=== PATIENT | male | born 1965 | race Caucasian/White ===

== ENCOUNTER 2019-01-02 13:09 | Outpatient (CLI) | payer OTHER ==
--- NOTE | 2019-01-02 15:37 | RAD ---
THREE VIEWS LUMBAR SPINE: HISTORY: Fall 2-3 weeks ago. Pain. COMPARISON: None. FINDINGS: Lateral neutral, lateral flexion, and lateral extension views of the lumbar spine are submitted for i nterpretation. FINDINGS: There appear to be 5 lumbar-type vertebral bodies. In the neutral upright position, there is 2 mm of retrolisthesis of L3 upon L4, upon extension 3.2 mm on of retrolisthesis of L3 upon L4, upon flexion there is 2.3 mm of retrolisthesis of L3 upon L4. In the neutral position, there is 2.2 mm of anterolisthesis of L4 upon L5. Upon extension, anterolis thesis resolves. Upon flexion, there is 3.5 mm anterolisthesis of L4 upon L5. IMPRESSION: Spondylolisthesis as above. POS: [facility]
== END 2019-01-02 13:10 | disposition home or self-care (01) ==
LOC: TBSIIMAG 13:09
PROVIDERS: ATTEND Neurological Surgery
DX: M43.16 Spondylolisthesis, lumbar region (principal); M25.559 Pain in unspecified hip
CPT/HCPCS: 72100; 72148

== ENCOUNTER 2019-01-13 07:51 | Outpatient (CLI) | payer OTHER ==
--- NOTE | 2019-01-13 11:03 | MRI ---
MRI LUMBAR SPINE NONCONTRAST: DATE: 01/13/19 HISTORY: 53-year-old male with low back pain and lumbar radiculopathy. M25.559 pain in unspecified hip. M43.16 spondylolisthesis, lumbar region. COMPARISON: None. FINDINGS: Vertebral body heights are maintained. No major bone marrow signal abnormality. T12-L1: Normal. L1-2: Normal. Conus medullaris terminates at mid L2 level. L2-3: Mild disc desiccation. Minimal disc space narrowing and minimal disc bulge. No central or neur al foraminal stenosis. Hemangioma of bone at left side of superior end plate of L3. L3-4: Mild to moderate disc space narrowing. Disc desiccation. Degenerative retrolisthesis of L3 on L4. Mild diffuse disc bulge. No significant central spinal canal stenosis. Posterior epidural fat pad . Mild thecal sac stenosis. Mild to moderate right neural foraminal stenosis. Almost complete effacem ent of fat signal in the left neural foramen by a combination of left lateral and far lateral broad b ased disc herniation with annular fissure, which significantly compresses, posteriorly displaces, and distorts the exiting left L3 nerve root, plus an approximately 1 x 1 x 1 cm mass located just latera l to the left neural foramen. This mass is T2-hyperintense and T1-hypointense. There is edema in the adjacent soft tissues. Furthermore, there is a central and left paracentral small disc extrusion with inferior migration of the extruded disc material down to the pedicle level of L4. This extrusion does not significantly abdias row the spinal canal and does not impinge on nerve roots. However, the anterior epidural fat pad is l arge at the pedicle level of L4, resulting in severe thecal sac stenosis at the L4 level, with crowdi ng to the cauda equina, and effacement of CSF signal, despite lack of severe bony spinal canal stenos is. L4-5: Moderate right degenerative facet disease and mild left degenerative facet disease. Mild disc space narrowing, disc desiccation, and diffuse disc bulge. Moderate right neural foraminal stenosis a nd mild to moderate left neural foraminal stenosis. Mild to moderate central spinal canal stenosis. P rominent posterior epidural fat pad. Moderate thecal sac stenosis. L5-S1: Normal disc height and disc signal. Severe bilateral degenerative facet disease results in ve ry mild Grade I anterolisthesis of L5 on S1. No central or neural foraminal stenosis. IMPRESSION: 1. Significant impingement on the exiting left L3 nerve root in the left neural foramen by a combina tion of left lateral and far lateral disc herniation, and a 1 cm mass centered slightly lateral to th e neural foramen. This mass could be a discal cyst, a nerve sheath tumor (schwannoma), and less likel y a nerve root sleeve cyst. There is adjacent soft tissue edema. 2. MRI of lumbar spine with contrast is recommended for further evaluation. 3. Severe facet osteoarthrosis bilaterally at L5-S1. 4. Mild to moderate degenerative disc disease at L3-4 and L4-5. SATYA Greco POS: [facility]
--- NOTE | 2019-01-13 11:29 | MRI ---
MRI OF THE LEFT HIP WITHOUT IV CONTRAST: INDICATION: History of fall 4 months ago with left hip pain. TECHNIQUE: Noncontrast MR images were obtained of the left hip. FINDINGS: There is a full-thickness partial-width tear involving the anterior left gluteus medius tendon at the insertion. There is partial thickness extension from this full-thickness component posteriorly into the mid aspect of the gluteus medius tendon at its footprint involving approximately 50% of the tend on thickness. The posterior aspect of the medius is intact. The left gluteus minimus tendon is inta ct. There is mild trochanteric bursitis. There is mild tendinosis of the left iliopsoas tendon. The rectus femoris and hamstring origins appe ar within normal limits. There is mild full-thickness articular cartilage thinning involving the ant erior superior aspect of the acetabular articular cartilage. The acetabular labrum is intact. Bone marrow signal intensity appears within normal limits. No lymphadenopathy is grossly evident. Incide ntal note is made of a cm paralabral cyst seen along the superior margin of the right hip suspicious for underlying labral tear. IMPRESSION: 1. Full-thickness partial-width tear of the anterior aspect of the left gluteus medius tendon at its insertion with partial thickness extension from this tear into the mid aspect of the gluteus medius tendon where the partial-width components of this region is 50% in thickness of the tendon itself. T here is mild left trochanteric bursitis. 2. Mild to moderate chondrosis of the left hip acetabular cartilage. 3. Suspected right hip paralabral tear with associated paralabral cyst. There is a 1 cm paralabral cyst seen along the posterior superior margin of the right hip. POS: [facility]
== END 2019-01-13 07:52 | disposition home or self-care (01) ==
LOC: TBSIIMAG 07:51
PROVIDERS: ATTEND Neurological Surgery
DX: M43.16 Spondylolisthesis, lumbar region (principal); M25.552 Pain in left hip; M47.817 Spondylosis without myelopathy or radiculopathy, lumbosacral region; M51.36 Other intervertebral disc degeneration, lumbar region; M51.26 Other intervertebral disc displacement, lumbar region; S76.012A Strain of muscle, fascia and tendon of left hip, initial encounter; M24.152 Other articular cartilage disorders, left hip; M70.62 Trochanteric bursitis, left hip; M24.851 Other specific joint derangements of right hip, not elsewhere classified
CPT/HCPCS: 72100; 72148

== ENCOUNTER 2019-06-02 05:38 | Day surgery (SDC) | payer OTHER ==
--- NOTE | 2019-06-01 09:16 | HP ---
HISTORY OF PRESENT ILLNESS: Mr. Dominguez is a 53-year-old male, who reports to our office for evaluation of low back and leg pain. States he slipped and fell down the stairs while working in June, sustained a meniscus injury and pain in his tailbone. He felt better, had returned to work, and then recently early November , he called his about he felt excruciating pain in the low back and hip and thigh. Today, the patient is walking with a limp on the left, using his 's walker to get around. The patient states that most of his hip pain is in the hip and it is in low back, left groin, anterior thigh, medial aspect of the knee and states that his second two toes are numb with recent injury. 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 He has taken Tylenol No. 3, naproxen, and muscle relaxers. REVIEW OF SYSTEMS: A 10-point review of systems has been completed and is negative other than stated in the above HPI. PAST MEDICAL HISTORY: Hypertension, left meniscal tear. PAST SURGICAL HISTORY: ACDF, C4 through C7. FAMILY HISTORY: Father is , diagnosed with heart disease and cancer. Mother is , diagnosed with heart disease. Children are alive. SOCIAL HISTORY: The patient is a smoker, reports smoking approximately half pack a day for 30 years and also uses snuff. Reports weekly ethanol use and works as a He is with children. MEDICATIONS: Lisinopril/hydrochlorothiazide, Tylenol No. 3. ALLERGIES: NO KNOWN DRUG ALLERGIES. PHYSICAL EXAMINATION: CONSTITUTION: Well-appearing, well-nourished, alert. NEUROLOGIC: Mental Status: Oriented to time, place, and person. Normal attention span and concentration. Speech, spontaneous and fluent. Comprehension intact. Content appropriate. Normal fund of knowledge. Cranial nerves grossly intact. Motor exam, 5/5 bilateral strength in IP, KE, KF, DF, PF, EHL. Negative single leg raise. Bilateral hips and groin pain with hip flexion, worse with internal rotation. Tender to palpate midline spine and left SI joint. Gait and station , put the cane to the left hand, he can walk without it. Motor, mild hip flexor weakness, and left greater than right quad seems strong. Sensory exam, an L3 loss of sensation on the left. Reflex exam knee jerks symmetric. IMAGING STUDIES: MRI far-lateral, herniated nucleus pulposus L3-L4 on L3 nerve root. Lateral recess stenosis at L4-L5 as well. X-rays, no instability with flexion-extension. ASSESSMENT AND PLAN: Lumbar radiculopathy. The patient has been offered surgery. He states that he is interested and has been consented. He states that he understands the risks and is willing to proceed. Job ID: [id number] [facility]
[2019-06-02] MEDS ORDERED: Bupivacaine HCl 0.5%/Epinephrine 1:200,000/PF 30 ml Vial ONE (06:18)
[2019-06-02] MEDS ORDERED: Sodium Chloride 0.9% 20 ML ONE (06:18)
[2019-06-02] MEDS ORDERED: Thrombin 5000 UNITS/5 ML VIAL ONE (06:18)
[2019-06-02] MEDS ORDERED: Fentanyl 100 MCG/2 ML VIAL ONE ×2 (06:39→11:46)
[2019-06-02 06:42] LABS: #Eosinphils 0.1 thou/uL (0.0-0.7); #Lymphocytes 2.1 thou/uL (1.20-3.40); #Monocytes 0.6 thou/uL (0.11-0.59); %Basophils 0.4 % (0.0-1.0); %Eosinophils 1.2 % (0.0-10.0); %Lymphocytes 27.1 % (21.0-51.0); %Monocytes 7.5 % (0.0-10.0); %Neutrophils 63.9 % (42.0-75.0); Hemoglobin 14.5 g/dL (14.0-18.0); Mean Corpuscular HGB CONC 33.4 g/dL (32.0-36.0); Mean Corpuscular Hemoglobin 30.6 pg (27.0-31.0); Mean Corpuscular Volume 91.4 fL (78.0-98.0); Mean Platelet Volume 7.2 fL (7.4-10.4); Platelet Count 288 thou/uL (130-400); RBC Distribution Width 12.4 % (11.5-14.5); Red Blood Cell (RBC) Count 4.73 mill/uL (4.70-6.10); White Blood Cell (WBC) Count 7.7 thou/uL (4.8-10.8)
[2019-06-02 06:49] LABS: INR-International Normal Ratio 0.9; PTT 27.6 SEC (22.9-36.1); Prothrombin Time 12.6 SEC (12.0-14.7)
[2019-06-02] MEDS ORDERED: Meperidine HCl/PF 25 MG/ML VIAL ONE (11:27)
--- NOTE | 2019-06-02 12:01 | OP ---
DATE OF PROCEDURE: 06/02/2019 GAMING CAGE CASHIER: Delma Churchill PA-C. PREOPERATIVE INDICATION: Treat pain and prevent neurological deterioration. PREOPERATIVE DIAGNOSES: Left far-lateral intervertebral disk herniation at L3-L4 with L3 radiculopathy, bilateral L4-L5 foraminal stenosis with L4 radiculopathies. POSTOPERATIVE DIAGNOSES: Left far-lateral intervertebral disk herniation at L3-L4 with L3 radiculopathy, bilateral L4-L5 foraminal stenosis with L4 radiculopathies. PROCEDURES PERFORMED: Decompressive laminectomy and medial facetectomy with foraminotomy at L4-L5 bilateral, left-sided L3-L4 far-lateral microdiskectomy, operating microscope. PREOPERATIVE MEDICATION: Ancef 2 g IV. DRAIN NUMBER: 0. DRAIN TYPE: None. DESCRIPTION OF PROCEDURE: The patient was brought to the operating room. General endotracheal anesthesia was induced. The patient was positioned prone on gel-filled chest rolls and a lateral fluoro radiograph was used to plan our incision. The lumbar skin was sterilely prepped and draped. We opened the midline incision with a 10 blade knife and controlled bleeding with bipolar and monopolar cautery. We used monopolar cautery to dissect through the subcutaneous tissues to the thoracodorsal fascia. We incised the fascia in the midline and reflected the paraspinal muscles off the spinous process and lamina of L3, L4, and L5. A self-retaining retractor was placed and a lateral fluoro radiograph confirmed the levels upon which we were operating. We began with the L3, L4, and L5 laminectomy. We removed the spinous process of L4 and the superior portion of L5. Using a Kerrison rongeur, we fashioned a laminectomy that extended from the inferior portion of the pedicles at L4 to the inferior portion the pedicles at L5. We widened our laminectomy defect with Kerrison rongeurs until we were at the medial edge of each of the pedicles. We performed medial facetectomies and foraminotomies to ensure a Bolaños ball probe could pass through the lateral recess and out the foramen without impingement. We decompressed both L4 nerve roots as well as both L5 nerve roots. We irrigated with bacitracin irrigation and turned our attention to the left side at L3-L4. Here, we used a high-speed drill and a ericka bit to drill out the lateral aspect of the pars interarticularis of L3 and superior portion of the L3-L4 facet joint. Bone was then removed with Kerrison rongeurs until we made our way into the foramen. We removed soft tissue and identified the nerve as it passed around the L3 pedicle. We dissected circumferentially around the nerve and found that lateral to the foramen. There is disk material on its ventral surface. This was discovered only under my operating microscope. We had brought the operating microscope into the field for drilling. Under microscopic magnification and using microsurgical techniques, we carefully dissected circumferentially around the nerve root. Once we identified very large hole in the annulus fibrosus that allowed the disk to emanate, we probed into the interspace. Using pituitary rongeurs, we removed loose fragments of disk, so they would not herniate in the coming weeks. The space ventral to the nerve root in this far lateral component was easily decompressed once we entered the cystic mass of the disk herniation. Most of this was fluid and was a disk cyst rather than containing cartilage. Nonetheless, it was removed. Connection to the interspace was amputated and loose disk material removed as well. We placed a pledget of fat over the hole in the annulus and on the ventral surface of the nerve. We then infused local anesthetic in the paraspinal muscles. We irrigated copiously with bacitracin irrigation. We took the operating microscope out of the field. We treated the wound with vancomycin powder and we closed in anatomical layers. This was a clean case, no contamination. Job ID: [id number]
[2019-06-02] MEDS ORDERED: HYDROcodone/Acetaminophen 5/325 mg Tablet ONE ×2 (12:41→13:25)
[2019-06-02] MEDS ORDERED: diphenhydrAMINE 50 MG/ML VIAL ONE (13:55)
[2019-06-02] MEDS ORDERED: Lidocaine 2% PF 5 ML VIAL ONE (13:55)
[2019-06-02] MEDS ORDERED: PHENYLEPHRINE-NS 100 MCG/ML 10 ML SYRINGE ONE (13:55)
[2019-06-02] MEDS ORDERED: PROPOFOL 200 MG/20 ML VIAL ONE (13:55)
[2019-06-02] MEDS ORDERED: Dexamethasone 20 MG/5 ML VIAL ONE (13:55)
[2019-06-02] MEDS ORDERED: Rocuronium Bromide 10 MG/ML (10ML VIAL) ONE (13:55)
[2019-06-02] MEDS ORDERED: Glycopyrrolate 0.2 MG/ML 5 ML SYRINGE ONE (13:55)
[2019-06-02] MEDS ORDERED: Ondansetron PF 4 MG/2 ML Vial ONE (13:55)
--- NOTE | 2019-06-05 15:23 | EKG ---
Test Reason : PREOP Blood Pressure : / mmHG Vent. Rate : 078 BPM Atrial Rate : 078 BPM P-R Int : 132 ms QRS Dur : 096 ms QT Int : 366 ms P-R-T Axes : 047 023 043 degrees QTc Int : 417 ms Normal sinus rhythm Normal ECG Confirmed by LIBAN MARCIAL ([id number]) on 06/05/2019 3:22:53 PM Referred By: GUY Confirmed By:LIBAN MARCIAL
== END 2019-06-02 13:40 | disposition home or self-care (01) ==
LOC: SDC 05:38
PROVIDERS: ATTEND Neurological Surgery
PROC: 0SB20ZZ Excision of Lumbar Vertebral Disc, Open Approach (ICD-10-PCS; principal; 2019-06-02)
PROC: 01NB0ZZ Release Lumbar Nerve, Open Approach (ICD-10-PCS; principal; 2019-06-02)
DX: M48.061 Spinal stenosis, lumbar region without neurogenic claudication (principal); M51.26 Other intervertebral disc displacement, lumbar region; I10 Essential (primary) hypertension; F17.210 Nicotine dependence, cigarettes, uncomplicated; Z98.1 Arthrodesis status; Z88.8 Allergy status to other drugs, medicaments and biological substances; Z79.899 Other long term (current) drug therapy
CPT/HCPCS: 36415; 76000; 85025; 85610; 85730; 93005; 93010; J0131; J0670; J0690; J2175; J3010; J3370; J3490

== ENCOUNTER 2020-05-08 12:54 | Outpatient (CLI) | payer OTHER ==
--- NOTE | 2020-05-08 13:58 | RAD ---
RADIOGRAPH LUMBAR SPINE 6 VIEWS: DATE: 05/08/2020 HISTORY: 54-year-old male with lumbar radiculopathy and lumbar spondylosis TECHNIQUE: AP, lateral, flexion, extension, and bilateral oblique views. COMPARISON: Flexion and extension views of 01/02/2019. FINDINGS: There are 5 lumbar-type vertebrae. No significant scoliosis. Vertebral body heights are maintained. L2-3: Mild disc space narrowing. L3-4: Moderate disc space narrowing especially posteriorly. Retrolisthesis of L3 on L4 appears slight ly worse than previously. No instability between flexion and extension, but limited range of motion. L4-5: Minimal retrolisthesis of L4 on L5. Moderate disc space narrowing. No instability. Limited rang e of motion. Midline laminectomy defect. Chronic grade 1 left lateral subluxation of L4 on L5. Bilateral facet DJD. L5-S1: High-grade bilateral facet DJD. Disc space maintained. Probably no significant interval change, other than L3-4. IMPRESSION: 1) lumbar spondylosis, consisting of: 2) Moderate degenerative disc disease at L4-5 and L5-S1 3) chronic grade 1 left lateral subluxation of L4 on L5. 4) status post laminectomy at L4-5 5.) high-grade bilateral facet osteoarthrosis at L4-5 and L5-S1. 6) no definite instability
--- NOTE | 2020-05-08 14:41 | MRI ---
MR the lumbar spine with and without contrast INDICATION: 54-year-old male with lumbar radiculopathy, spondylosis, left leg and back pain with hist ory of surgery one year ago COMPARISON: January 13, 2019 and MR lumbar spine without contrast. TECHNIQUE: Multiplanar multisequence MR images were obtained of lumbar spine with and without IV cont rast. Contrast: 20 cc of MultiHance. FINDINGS: Bone marrow: Bony hemangioma within the left superolateral aspect of L3 vertebral body is similar aicha earing. There is postprocedural change of a laminectomy at L4. Distal spinal cord and conus: Normal. Conus is seen to terminate at the L1 level. Visualized retroperitoneum and paraspinal soft tissues: Normal. No lymphadenopathy demonstrated. Vertebral levels: L5-S1: At L5-S1, there is a minimal broad-based bulge and facet osteoarthrosis without appreciable ce ntral canal or neural foraminal narrowing. This appears similar to the comparison exam. L4-5: There is a mild broad-based bulge with mild facet joint degenerative change loss disc space hei ght inducing moderate right and mild left neural foraminal narrowing which appears similar to the comparison exam. L3-4: Previously seen left paracentral, caudad extending disc extrusion is no longer demonstrated. Th ere is retrolisthesis of L3 and L4 which appears slightly more pronounced than on the prior exam. There is a residual asymmetric to the left broad-based disc bulge with a superimposed mild residual l eft foraminal and far lateral disc protrusion. There is some prominent epidural fibrosis seen along the posterior margin of the left neural foramina, best seen on image 13 of series 9 and image 28 of s eries 10. The disc protrusion in addition to the facet osteoarthrosis and epidural fibrosis is inducing severe left neural foraminal narrowing. Previously seen left far lateral T2 hyperintense ova l mass is no longer identified and likely related to surgical resection. There is slightly more pronounced right neural foraminal narrowing at L3-4 due to a broad-based disc bulge and worsening ret rolisthesis. L2-3: There is mild facet joint degenerative change and no appreciable central canal or neural forami nal narrowing. L1-L2: No appreciable central canal or neuroforaminal narrowing. T12-L1: No appreciable central canal or neuroforaminal narrowing. Postcontrast series: There are areas of the epidural fibrotic enhancement seen along the posterior ma rgin of the left L3-4 neural foramina. There is also some mild posterior epidural embolic enhancement seen at the laminectomy site at L4. No definite region of abnormal intrathecal enhancemen t is demonstrated. IMPRESSION: 1. Resolution of the previously seen left paracentral, caudad extending disc extrusion at L3-4. There is also resolution of previously seen left far lateral T2 hyperintense oval mass. There is residual left foraminal to left lateral disc protrusion at L3-4 in addition to epidural fibrosis and facet hypertrophy inducing severe left neural foraminal narrowing at L3-4. Worsening mild right neural foraminal narrowing at L3-4. Slightly more pronounced retrolisthesis of L3 on L4 likely relate d to some disc instability. 2. Stable moderate right and mild left neural foraminal narrowing at L4-5.
== END 2020-05-08 12:55 | disposition home or self-care (01) ==
LOC: TBSIIMAG 12:54
PROVIDERS: ATTEND Neurological Surgery
DX: M47.26 Other spondylosis with radiculopathy, lumbar region (principal); M51.16 Intervertebral disc disorders with radiculopathy, lumbar region; M51.17 Intervertebral disc disorders with radiculopathy, lumbosacral region; M47.27 Other spondylosis with radiculopathy, lumbosacral region; M48.061 Spinal stenosis, lumbar region without neurogenic claudication; M43.16 Spondylolisthesis, lumbar region; Z98.890 Other specified postprocedural states
CPT/HCPCS: 72110; 72158